=== PATIENT | male | born 1970 | race Caucasian/White ===

== ENCOUNTER → 2018-07-18 08:09 | Outpatient (CLI) | payer OTHER, SELFPAY ==
--- NOTE | 2018-07-18 | DI.MRI.S_ITS ---
PROCEDURE: MR SHOULDER RT WO CON INDICATIONS: RIGHT SHOULDER PAIN TECHNIQUE: Noncontrast oblique coronal T2 fast spin echo with fat saturation, oblique sagittal T1 spin echo and T2 fast spin echo with fat saturation, axial T1 spin echo and T2 fast spin echo with fat saturation through the shoulder. COMPARISON: None. FINDINGS: Image quality: Excellent. Rotator cuff: Tendinosis a low grade articular and bursal surface partial-thickness tear involving distal supraspinatus near its insertion the humeral head is seen. Tendinosis involving the distal infraspinatus is also seen. There is also distal subscapularis tendinosis. No full-thickness rotator cuff tendon rupture. Sagittal images demonstrate no significant muscle atrophy. Bones and bursae: No bone marrow contusions or fractures. Mild to moderate acromioclavicular joint osteoarthritis is seen. Mild to moderate glenohumeral joint osteoarthritis is also noted. The acromion demonstrates conventional anatomy, without an os acromiale. No pathologic subacromial-subdeltoid or subcoracoid bursal fluid is present. Capsule and soft tissues: In the absence of intra-articular contrast, there is suggestion of superior anterior labral tear extending from 12 to 2:00 position. There is also suggestion of inferior labral tear is 5 to 6:00 position. The long head of the biceps tendon demonstrates normal location and morphology. The rotator interval appears normal, without fibrosis. The coracohumeral ligament is normal in thickness. IMPRESSION: 1. Tendinosis and low-grade partial-thickness tear involving distal supraspinatus. Distal infraspinatus subscapularis tendinosis. No full-thickness rotator cuff tendon tear. No significant rotator cuff muscle atrophy. 2. Erdx-os-veulelts a.c. joint and glenohumeral joint osteophyte is. No fracture or dislocation. No significant joint fluid. 3. Degenerative changes throughout labrum with suggestion of superior anterior labral tear from 12 to 2:00 position an inferior labral tear at 5 to 6:00 position. Dictated by: Duncan Arzate M.D. on 07/18/2018 at 12:48 Approved by: Duncan Arzate M.D. on 07/18/2018 at 12:55
== END ==
PROVIDERS: Visit Provider Nurse Practitioner Acute Care
DX: M25.511 Pain in right shoulder (principal); S46.011A Strain of muscle(s) and tendon(s) of the rotator cuff of right shoulder, initial encounter; M19.011 Primary osteoarthritis, right shoulder
CPT/HCPCS: 73221

== ENCOUNTER 2018-07-24 20:43 | Emergency (ER) | payer OTHER, SELFPAY ==
[2018-07-24 20:51] VITALS: BP 152/103; PULSE 92; RESP 18; TEMP 36.9; O2SAT 97; BMI 27.3
--- NOTE | 2018-07-24 21:03 | ED_ITS ---
HPI - Abdominal Pain General Chief Complaint: Abdominal Pain Stated Complaint: states that his kidneys are killing him. Time Seen by Provider: 07/24/18 21:03 Source: patient Mode of arrival: ambulatory Limitations: no limitations History of Present Illness HPI narrative: 48-year-old male came in for evaluation of possible parasitic infection. Patient states that he does ?dive? a lot. 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 He states that several months ago he was ?peeing warms ?he went to see his primary doctor. He states that he had multiple tests done to include testing for STDs. He states he was diagnosed with ?pinworms ?was placed on albendazole which he took this medication until completion. Patient states that all of his symptoms seem to resolve until couple days ago where he states he started to have problems with urinating again. He states that when he diet as he urinates. He states that when he hangs his shorts out to dry there is a patch on his shorts where he states there are ?eggs ?he states that he has a physician friend who was also a diver who states that he probably has schistosomiasis. He states that he is concerned that he now has a kidney infection because his lower back is hurting. Denies any rashes. Denies any fevers. States he does have lower abdominal pain. No nausea vomiting. No specific burning when he pees. No urinary incontinence or retention or frequency. Related Data Allergies Allergy/AdvReac Type Severity Reaction Status Date / Time No Known Drug Allergies Allergy Verified 07/24/18 20:56 Review of Systems Constitutional Denies chills, Denies fatigue, Denies fever(s), Denies lethargy and Denies malaise ENT Ears, Nose, Mouth, and Throat: Denies vertigo and Denies dizziness Cardiovascular Denies chest pain, Denies syncope, Denies edema and Denies dyspnea Respiratory Denies dyspnea Gastrointestinal Gastrointestinal: Reports abdominal pain, Denies melena, Denies nausea and Denies vomiting Genitourinary Denies hematuria, Denies oliguria, Denies dysuria, Denies nocturia, Denies testicular pain, Denies urinary frequency, Denies urinary hesitancy and Denies urinary urgency Comments: ?Peeing worms ? Musculoskeletal Denies myalgias and Denies arthralgias Integumentary/Breasts Denies lesions and Denies rash Neurologic Denies confusion, Denies vertigo, Denies dizziness and Denies syncope Psychiatric Denies confusion Endocrine Denies fatigue Allergic/Immunologic Denies urticaria [facility] Medical History Healthy adult (Acute) Surgical History No pertinent past surgical history (Acute) Social History Smoking Status: Never smoker Exam Initial Vital Signs Initial Vital Signs: Vital Signs Temperature 98.4 F 07/24/18 20:51 Pulse Rate 92 H 07/24/18 20:51 Respiratory Rate 18 07/24/18 20:51 Blood Pressure 152/103 H 07/24/18 20:51 Pulse Oximetry 97 07/24/18 20:51 Const General: cooperative, healthy appearing, comfortable, well developed, well groomed and No acute distress Orientation: alert, awake and oriented x3 HENMT Head: normal to inspection and normocephalic Resp Effort & Inspection: normal respiratory effort Auscultation: clear to auscultation bilaterally Cardio Rate: regular rate Rhythm: regular rhythm Pulses: radial pulses present GI Inspection: normal to inspection and non-distended Palpation: soft, No firm, No guarding and No tender Skin Lesions: no lesions Rashes: no rashes Neuro General: alert, awake and oriented x3 Extrem General: normal to inspection and capillary refill normal Psych Appearance: grossly normal and well kempt Course Orders Ordered: ED Orders 07/24/18 21:20 CT abdomen pelvis w con Stat 07/24/18 21:26 Complete Blood Count AUTO DIFF Stat Comprehensive Metabolic Panel Stat Lipase Stat 07/24/18 21:30 Blood Culture Stat 07/24/18 21:35 Urinalysis and Microscopic Stat Urine Chlamydia Gonorrhea PCR Stat Urine Culture Stat Discontinued Medications Sodium Chloride (Normal Saline 0.9%) 1,000 mls @ 1,000 mls/hr IV BOLUS ONE Stop: 07/24/18 22:19 Last Infusion: 07/24/18 22:26 Dose: 0 mls/hr Admin: 07/24/18 21:20 Dose: 1,000 mls/hr Vital Signs - 8 hr 07/24/18 20:51 07/24/18 22:39 Temperature 98.4 F Pulse Rate 92 H 69 Respiratory Rate 18 15 Blood Pressure 152/103 H Blood Pressure [Right Arm] 115/73 Pulse Oximetry 97 96 MDM - Abdominal Pain Lab Data Attestation: I reviewed the patient's lab results. Result diagrams: 07/24/18 21:26 07/24/18 21:26 Lab Results 07/24/18 07/24/18 07/24/18 Range/Units 21:26 21:26 21:35 WBC 11.4 H (4.5-11.0) X10^3/uL RBC 5.31 (4.5-5.9) X10^6/uL Hgb 15.8 (13.5-17.5) g/dL Hct 45.9 (41-53) % MCV 86.3 (80-100) fL MCH 29.7 (26-34) PG MCHC 34.4 (30-36) % RDW 13.8 (11.6-14.8) % Plt Count 198 (150-400) X10^3/uL Neut % (Auto) 69.2 (50-75) % Lymph % (Auto) 20.9 L (25-40) % [place] % (Auto) 6.0 (3-14) % Eos % (Auto) 3.2 (2-4) % Baso % (Auto) 0.7 (0-2) % Neut # (Auto) 7900 H (6242-5105) /uL Sodium 146 H (137-145) mmol/L Potassium 3.9 (3.4-5.1) mmol/L Chloride 106 (98-107) mmol/L Carbon Dioxide 27 (22-32) mmol/L BUN 15 (9-20) mg/dL Creatinine 1.00 (0.66-1.25) mg/dL Estimated GFR > 60.0 (>60) mL/min BUN/Creatinine Ratio 15.0 (6-22) Glucose 118 H (70-100) mg/dL Calcium 9.8 (8.4-10.2) mg/dL Total Bilirubin 0.4 (0.2-1.3) mg/dL AST 22 (17-59) IU/L ALT 26 (21-72) IU/L Alkaline Phosphatase 40 (38-126) U/L Total Protein 7.4 (6.3-8.2) g/dL Albumin 4.6 (3.5-5.0) g/dL Globulin 2.8 (1.7-4.1) g/dL Albumin/Globulin Ratio 1.6 (1.0-2.8) Lipase 134 (23-300) U/L Urine Color Yellow Urine Appearance Clear Urine pH 5.5 (4.5-8.0) Ur Specific [place] 1.010 (1.000-1.035) Urine Protein Negative (Negative) Urine Glucose (UA) Negative (Normal) g/dL Urine Ketones Negative (NEGATIVE) Urine Occult Blood Negative (Negative) Urine Nitrate Negative (Negative) Urine Bilirubin Negative (NEGATIVE) Urine Urobilinogen 0.2 (0.2) E.U./dL Ur Leukocyte Esterase Trace H (NEGATIVE) Urine RBC None seen (0-5/HPF) Urine WBC 0-1/hpf (0-5/HPF) Urine Bacteria None seen (None) Ur Culture Indicated? Not Reportable Micro UA Comment Not Reportable Imaging Data CT scan - abdomen: Radiologist's impression: Mildly hyperdense left renal lesion, possibly a complex cyst. Follow-up ultrasound correlation is suggested. MDM Narrative Medical decision making narrative: Patient's labs unremarkable. His urinalysis is unremarkable. I did obtain a urine culture despite the normal urinalysis to definitively prove no infection. GC chlamydia urine also ordered. Patient was informed that this was obtained. CT scan of his abdomen shows no acute pathology. I did discuss the renal cyst with him and informed him he needed to follow up with his primary doctor. We did discuss the Schistosomiasis. I did offer to discharge him with a prescription for Praziquantel however I informed him that I had no definitive diagnosis. After our discussion the patient opted to hold on any prescriptions for now. He states that he is not concerned about any sexually transmitted infections. He states that he had a ?full test ?for this about a month ago by his primary doctor. He states he has not had intercourse in several months. Patient is nontoxic appearing. He was instructed that he needed to contact his primary care doctor tomorrow for follow -up. He was given return precautions. He expressed understanding and agreement with plan. Discharge Plan Departure Patient Disposition: Home Clinical Impression: Dysuria, Abdominal pain Instructions: DI for Abdominal Pain-Adult, DI for Dysuria -- Adult Activity Restrictions/Additional Instructions: You do have a urine culture pending. Out of the emergency department we only call for a positive culture results. Recommend that you contact your primary care doctor tomorrow for a follow-up visit. Return to the emergency department for any new or worsening symptoms
[2018-07-24] MEDS: SODIUM CHLORIDE 0.9% 1,000 ML 1000 ML IV (21:20)
--- NOTE | 2018-07-24 21:20 | DI.CT.S_ITS ---
PROCEDURE: CT ABDOMEN PELVIS W CON INDICATIONS: lower abdominal pain TECHNIQUE: After the administration of intravenous contrast, 5 mm thick sections acquired from the diaphragm to the symphysis. 5 mm coronal and sagittal reformats were acquired. For radiation dose reduction, the following was used: automated exposure control, adjustment of mA and/or kV according to patient size. COMPARISON: None. FINDINGS: Image quality: Excellent. ABDOMEN: Lung bases: Lung bases are clear. 1.2 cm thin-walled pulmonary cysts noted in the posterior-medial right lower lobe. Heart size is normal. Solid organs: Liver is normal in size and enhancement. Gallbladder is within normal limits. Biliary system is non dilated. Pancreas enhances normally. Spleen is normal in size and enhancement. Small punctate calcification in the spleen compatible sequela prior granulomatous disease. No adrenal nodules. Kidneys demonstrate normal size and enhancement, without hydronephrosis. 1.8 cm diameter hypoattenuating lesion with density measurements of 42 Hounsfield units in the midpole of left kidney. Peritoneum and bowel: Bowel loops demonstrate normal wall thickness and caliber. A few scattered diverticuli noted in the colon without evidence of diverticulitis. No free fluid or air. The appendix is normal. Nodes and vessels: No retroperitoneal or mesenteric adenopathy by size criteria. Aorta and inferior vena cava are normal in size. Scattered atherosclerotic calcifications involving the abdominal and pelvic vasculature. Miscellaneous: Small fat-containing umbilical hernia. PELVIS: Genitourinary: Bladder wall thickness is normal. Miscellaneous: No inguinal adenopathy. Small fat containing left inguinal hernia. Bones: No suspicious bony lesions. No vertebral body compression fractures. Spine degenerative disc disease and facet arthropathy. IMPRESSION: 1. No acute disease process. 2. The appendix is normal. 3. No free fluid or free air. 4. No dilated loops of bowel. 5. Colonic diverticulosis without evidence of diverticulitis. 6. 1.8 cm hypoattenuating lesion left kidney with density measurements of 42 Hounsfield units possibly representing a hyperdense cyst. Recommend renal ultrasound for characterization. 7. Small umbilical ventral hernia and left inguinal hernia. Dictated by: Teresa Aguilar MD, PhD on 07/25/2018 at 7:30 Approved by: Teresa Aguilar MD, PhD on 07/25/2018 at 7:36
[2018-07-24 21:41] LABS: Bacteria Urine None Seen; RBC Urine None Seen (0-5/HPF)
[2018-07-24 21:42] LABS: Basophils Percent Auto 0.7 % (0-2); Eosinophils Percent Auto 3.2 % (2-4); Hematocrit 45.9 % (41-53); Hemoglobin 15.8 g/dL (13.5-17.5); Lymphocytes Percent Auto 20.9 % (25-40); Mean Corpuscular HGB Conc 34.4 % (30-36); Mean Corpuscular Hemoglobin 29.7 PG (26-34); Mean Corpuscular Volume 86.3 fL (80-100); Neutrophils Percent Auto 69.2 % (50-75); Platelet Count 198 X10^3/uL (150-400); Red Blood Cell Count 5.31 X10^6/uL (4.5-5.9); Red Cell Distribution Width 13.8 % (11.6-14.8); White Blood Cell Count 11.4 X10^3/uL (4.5-11.0)
[2018-07-24 21:43] LABS: Appearance Urine UA CLEAR; Bilirubin Urine UA NEGATIVE (NEGATIVE); Color Urine UA YELLOW; Glucose Urine UA NEGATIVE (Normal); Ketones Urine UA NEGATIVE (NEGATIVE); Leukocyte Esterase Urine UA TRACE (NEGATIVE); Nitrite Urine UA Negative (Negative); Occult Blood Urine UA NEGATIVE (Negative); Protein Urine UA NEGATIVE (Negative); Urobilinogen Urine UA 0.2 E.U./dL (0.2); pH Urine UA 5.5 (4.5-8.0)
[2018-07-24 21:43] LABS: Add Manual Diff / Slide Review NO; Neutrophils Absolute Auto 7900 /uL (3000-5900)
[2018-07-24 21:47] LABS: Alanine Aminotransferase 26 IU/L (21-72); Albumin 4.6 g/dL (3.5-5.0); Albumin Globulin Ratio 1.6 (1.0-2.8); Alkaline Phosphatase 40 U/L (38-126); Aspartate Aminotransferase 22 IU/L (17-59); Bilirubin Total 0.4 mg/dL (0.2-1.3); Blood Urea Nitrogen 15 mg/dL (9-20); Calcium 9.8 mg/dL (8.4-10.2); Carbon Dioxide 27 mmol/L (22-32); Chloride 106 mmol/L (98-107); Estimated Glomerular Filt Rate > 60.0 mL/min (>60); Globulin 2.8 g/dL (1.7-4.1); Glucose 118 mg/dL (70-100); HEMOLYSIS < 15 (0-50); Lipase 134 U/L (23-300); Potassium 3.9 mmol/L (3.4-5.1); Sodium 146 mmol/L (137-145); Total Protein 7.4 g/dL (6.3-8.2)
[2018-07-24 21:52] LABS: WBC Urine 0-1/HPF (0-5/HPF)
[2018-07-24 22:39] VITALS: BP 115/73; PULSE 69; RESP 15; O2SAT 96
[2018-07-24 23:30] LABS: Urine N gonorrhoeae NOT DETECTED
[2018-07-24 23:40] LABS: Urine Chlamydia NOT DETECTED
== END 2018-07-24 23:38 | disposition home or self-care (01) ==
PROVIDERS: Emergency Provider Emergency Medicine
DX: R30.0 Dysuria (principal); R10.9 Unspecified abdominal pain
CPT/HCPCS: 36415; 74177; 80053; 81001; 83690; 85025; 87040; 87086; 87491; 87591; 96360; 99283; 99285; Q9967

== ENCOUNTER 2018-07-27 12:51 | Emergency (ER) | payer OTHER, SELFPAY ==
[2018-07-27 13:01] VITALS: BP 137/96; PULSE 104; RESP 18; TEMP 37.7; O2SAT 96
--- NOTE | 2018-07-27 15:38 | ED.MALEGU ---
HPI - Male Genitourinary <CLEM Rothman-BC - Last Filed: 07/27/18 22:31> General Chief complaint: Urogenital-Male Stated complaint: states he has a cyst on his kidney, hurts Time Seen by Provider: 07/27/18 15:39 Source: patient Mode of arrival: ambulatory Limitations: no limitations History of Present Illness HPI Narrative: Patient presents with chief complaint of renal cyst pain. He was evaluated in this emergency department on 07/24 and diagnosed with a renal cyst. He appears frustrated [facility]. He is concerned that he is going to have cyst explode and .? Patient does complain of flank pain, which she states is from the cyst. He also makes remarks that he is concerned that he has a bacteria or parasite that went through his swim trunks of his penis and into his bladder. He is concerned that the parasite has gone up into his kidney. The patient denies any fevers, nausea, vomiting, diarrhea. He denies any urinary symptoms including dysuria urgency or frequency. He states he has recent STI testing and declines that today. Chart review illustrate that he had gonorrhea chlamydia performed on the which came back negative. Patient presents requesting admission due to renal cyst. Related Data Previous Rx's Medication Instructions Recorded naproxen 500 mg PO BID #30 tab 07/27/18 Allergies Allergy/AdvReac Type Severity Reaction Status Date / Time No Known Drug Allergies Allergy Verified 07/24/18 20:56 Review of Systems <CLEM Rothman-KARINA - Last Filed: 07/27/18 22:31> Review of Systems GENERAL: Denies chills, fatigue, malaise, fever, sweats. HEENT: Denies sinus pain, ear pain, sore throat, difficulty swallowing, dizziness. RESPIRATORY: Denies dyspnea, cough, wheezing, hemoptysis, sputum. CARDIOVASCULAR: Denies chest pain, palpitations, orthopnea, edema, GASTROINTESTINAL: See HPI : Denies dysuria, frequency, incontinence, hematuria, urinary retention. MUSCULOSKELETAL: denies weakness, joint pain, or bony pain SKIN: Denies rash, skin lesions, or other NEUROLOGIC: Denies weakness, headache, numbness, change in speech, confusion, seizures, incoordination. PSYCHIATRIC: No concerning psychosocial issues. 12 point review of systems is negative except for those stated above Exam <LEEANNE Rothman - Last Filed: 07/27/18 22:31> Narrative Exam Narrative: GENERAL: This is a well-nourished, well-developed patient, in mild distress. HEAD: Atraumatic. Normocephalic. No temporal or scalp tenderness. EYES: Pupils equal round and reactive. Extraocular motions intact. No scleral icterus. No injection or drainage. ENT: Nose without bleeding, purulent drainage or septal hematoma. Throat without erythema, tonsillar hypertrophy or exudate. Uvula midline. Airway patent. NECK: Trachea midline. No JVD or lymphadenopathy. Supple, nontender, no meningeal signs. CARDIOVASCULAR: Regular rate and rhythm without murmurs, gallops, or rubs. RESPIRATORY: Clear to auscultation. Breath sounds equal bilaterally. No wheezes, rales, or rhonchi. GASTROINTESTINAL: Abdomen diffusely tender, nondistended. No hepato-splenomegaly, or palpable masses. No guarding. No pulsatile mass palpable. No pain at McBurney's point. Negative Lynn sign. EXTREMITIES: No clubbing, cyanosis, or edema. No joint tenderness, effusion, or edema noted. BACK: Nontender without deformity or crepitance. Right-sided flank tenderness. NEURO: AOx3. Pressured speech SKIN: No rash or erythema. No ecchymosis erythema or rash noted lower back. Initial Vital Signs Initial Vital Signs: Vital Signs Temperature 99.8 F H 07/27/18 13:01 Pulse Rate 104 H 07/27/18 13:01 Respiratory Rate 18 07/27/18 13:01 Blood Pressure 137/96 H 07/27/18 13:01 Pulse Oximetry 96 07/27/18 13:01 <Albin Fiore DO - Last Filed: 07/27/18 23:48> Initial Vital Signs Initial Vital Signs: Vital Signs Temperature 99.8 F H 07/27/18 13:01 Pulse Rate 104 H 07/27/18 13:01 Respiratory Rate 18 07/27/18 13:01 Blood Pressure 137/96 H 07/27/18 13:01 Pulse Oximetry 96 07/27/18 13:01 Course <LEEANNE Rothman - Last Filed: 07/27/18 22:31> Orders Ordered: ED Orders 07/27/18 16:20 Complete Blood Count MAN DIFF Stat Comprehensive Metabolic Panel Stat 07/27/18 17:36 US renal complete Stat Discontinued Medications Ketorolac Tromethamine (Toradol) 60 mg IM NOW ONE Stop: 07/27/18 17:43 Last Admin: 07/27/18 17:52 Dose: 60 mg The patient presented to the emergency department requesting admission to have his for renal cyst removed. He states that he was told that he could come to the hospital and get any testing wanted because he is on disability. I discussed with him that I cannot automatically admit him due to the renal cyst that was found a few days ago. The patient appeared to become upset, using pressured speech and swearing at times. I did agree to get a renal ultrasound, but discussed that that would not guarantee an admission in the hospital. I discussed at length the results of the renal ultrasound with him, noted that the mass found was solid. The patient did request an anti parasite medication. However given that he had a negative urine culture recently and a negative urinalysis today, I declined to prescribe that medication form encourage follow-up this primary care provider. When he discussed that he has a hard time getting into his primary care provider offered to refer him to a different group. I did give him contact information for the nephrology group in case he chooses to pursue that. I discussed at length with patient that presenting to the emergency department does not necessarily mean that all testing in all imaging is available. The patient appear distressed at this discussion. I discussed at length that the patient is to follow up his primary care provider for further imaging and/or testing or monitoring of his renal cyst Vital Signs - 8 hr 07/27/18 16:40 07/27/18 18:00 Pulse Rate 65 63 Blood Pressure [Right Arm] 136/87 148/83 H Pulse Oximetry 99 100 <Albin Fiore, DO - Last Filed: 07/27/18 23:48> Orders Ordered: ED Orders 07/27/18 16:20 Complete Blood Count MAN DIFF Stat Comprehensive Metabolic Panel Stat 07/27/18 17:36 US renal complete Stat Discontinued Medications Ketorolac Tromethamine (Toradol) 60 mg IM NOW ONE Stop: 07/27/18 17:43 Last Admin: 07/27/18 17:52 Dose: 60 mg Vital Signs - 8 hr 07/27/18 16:40 07/27/18 18:00 Pulse Rate 65 63 Blood Pressure [Right Arm] 136/87 148/83 H Pulse Oximetry 99 100 MDM - Male Genitourinary <VIJAY RothmanP- - Last Filed: 07/27/18 22:31> Lab Data Attestation: I reviewed the patient's lab results. Result diagrams: 07/27/18 16:20 07/27/18 16:20 Lab Results 07/27/18 07/27/18 Range/Units 16:20 16:20 WBC 12.8 H (4.5-11.0) X10^3/uL RBC 5.28 (4.5-5.9) X10^6/uL Hgb 15.5 (13.5-17.5) g/dL Hct 45.9 (41-53) % MCV 87.0 (80-100) fL MCH 29.4 (26-34) PG MCHC 33.8 (30-36) % RDW 14.0 (11.6-14.8) % Plt Count 203 (150-400) X10^3/uL Total Counted 100 Seg Neutrophils % 80.0 H (38-70) % Band Neutrophils % 2.0 L (3-7) % Lymphocytes % (Manual) 12.0 L (25-45) % Monocytes % (Manual) 4.0 (2-11) % Eosinophils % (Manual) 1.0 L (2-4) % Basophils % (Manual) 1.0 (0-1) % Neutrophils # (Manual) 16310 H (3125-1185) /uL RBC Morphology Normal morphology Sodium 143 (137-145) mmol/L Potassium 4.1 (3.4-5.1) mmol/L Chloride 106 (98-107) mmol/L Carbon Dioxide 28 (22-32) mmol/L BUN 17 (9-20) mg/dL Creatinine 1.00 (0.66-1.25) mg/dL Estimated GFR > 60.0 (>60) mL/min BUN/Creatinine Ratio 17.0 (6-22) Glucose 93 (70-100) mg/dL Calcium 9.9 (8.4-10.2) mg/dL Total Bilirubin 0.7 (0.2-1.3) mg/dL AST 25 (17-59) IU/L ALT 29 (21-72) IU/L Alkaline Phosphatase 39 (38-126) U/L Total Protein 7.5 (6.3-8.2) g/dL Albumin 4.5 (3.5-5.0) g/dL Globulin 3.0 (1.7-4.1) g/dL Albumin/Globulin Ratio 1.5 (1.0-2.8) Urine Dip Bedside Urine Glucose Negative Bedside Urine Bilirubin - Negative Bedside Urine Ketone +/- 5 Urine Specific Griffin 1.030 Bedside Urine Occult Blood - Negative Bedside Urine pH 5.5 Bedside Urine Protein - Negative Bedside Urine Urobilinogen - Negative Bedside Urine Nitrite - Negative Bedside Urine Leukocytes - Negative Esterase Imaging Data renal US: Radiologist's impression: [address] [address] Ultrasound Report Signed Patient: Eliot Benoit EMR#: [id number] : 1970Acct:[id number] Age/Sex: 48 / MDate of Service: 07/27/18 Loc: ED Accession Number: [id number] Procedure: US renal complete Ordering Provider: Lesly Altman PROCEDURE: US RENAL COMPLETE INDICATIONS: LEFT KIDNEY MASS ON CT TECHNIQUE: Real-time scanning was performed of the kidneys and bladder, with image documentation. COMPARISON: [facility], CT, CT ABDOMEN PELVIS W CON, 07/24/2018, 21:42. FINDINGS: Kidneys: Kidneys are normal in size. Right kidney measures 10.9 cm long; left kidney measures 11.3 cm long. Right renal cortical thickness is 1.7 cm; left renal cortical thickness is 1.9 cm. Renal cortical echotexture is normal. No hydronephrosis or nephrolithiasis. 1.7 x 1.7 x 1.7 cm echogenic round and solid-appearing lesion is noted in mid pole of left kidney which was also seen on recent CT of abdomen and pelvis. No internal vascularity is noted. No other discrete renal lesion is seen. Bladder: Pre-void bladder volume is 173 mL. No significant post void residual is seen. Pre-void images demonstrate no intraluminal masses or stones. On pre-void images, bilateral ureteral jets are not noted with color Doppler interrogation. (Of note, ureteral jets may not be detectable in up to 25% of cases due to insufficient differences in specific gravity between ureteral and bladder urine). Miscellaneous: No free pelvic fluid. IMPRESSION: 1. 1.7 cm round echogenic and solid-appearing lesion involving the pole of left kidney. No internal vascularity is seen. Finding could represent benign process such as angiomyolipoma. Malignant renal mass cannot be excluded. Consider MRI of abdomen without and with contrast for further evaluation if indicated. 2. No other renal lesion is seen. No hydronephrosis. Dictated by: Duncan Arzate M.D. on 07/27/2018 at 18:39 Approved by: Duncan Arzate M.D. on 07/27/2018 at 18:43 [facility] Narrative Medical decision making narrative: The patient presents with chief complaint of flank pain. He has noted renal cyst and was requesting further imaging and admission for its removal. I did do an ultrasound emergency department. I encouraged him to follow up with his primary care provider. He had a negative urinalysis and stable lab work. He is hemodynamically stable upon discharge in the emergency department has been so throughout his stay here. I did give him a prescription of naproxen for his pain. I discussed at length return precaution the emergency department including concerned part is Dr. hernandez. <Albin Fiore DO - Last Filed: 07/27/18 23:48> Lab Data Lab Results 07/27/18 07/27/18 Range/Units 16:20 16:20 WBC 12.8 H (4.5-11.0) X10^3/uL RBC 5.28 (4.5-5.9) X10^6/uL Hgb 15.5 (13.5-17.5) g/dL Hct 45.9 (41-53) % MCV 87.0 (80-100) fL MCH 29.4 (26-34) PG MCHC 33.8 (30-36) % RDW 14.0 (11.6-14.8) % Plt Count 203 (150-400) X10^3/uL Total Counted 100 Seg Neutrophils % 80.0 H (38-70) % Band Neutrophils % 2.0 L (3-7) % Lymphocytes % (Manual) 12.0 L (25-45) % Monocytes % (Manual) 4.0 (2-11) % Eosinophils % (Manual) 1.0 L (2-4) % Basophils % (Manual) 1.0 (0-1) % Neutrophils # (Manual) 31435 H (1387-3334) /uL RBC Morphology Normal morphology Sodium 143 (137-145) mmol/L Potassium 4.1 (3.4-5.1) mmol/L Chloride 106 (98-107) mmol/L Carbon Dioxide 28 (22-32) mmol/L BUN 17 (9-20) mg/dL Creatinine 1.00 (0.66-1.25) mg/dL Estimated GFR > 60.0 (>60) mL/min BUN/Creatinine Ratio 17.0 (6-22) Glucose 93 (70-100) mg/dL Calcium 9.9 (8.4-10.2) mg/dL Total Bilirubin 0.7 (0.2-1.3) mg/dL AST 25 (17-59) IU/L ALT 29 (21-72) IU/L Alkaline Phosphatase 39 (38-126) U/L Total Protein 7.5 (6.3-8.2) g/dL Albumin 4.5 (3.5-5.0) g/dL Globulin 3.0 (1.7-4.1) g/dL Albumin/Globulin Ratio 1.5 (1.0-2.8) Urine Dip Bedside Urine Glucose Negative Bedside Urine Bilirubin - Negative Bedside Urine Ketone +/- 5 Urine Specific Griffin 1.030 Bedside Urine Occult Blood - Negative Bedside Urine pH 5.5 Bedside Urine Protein - Negative Bedside Urine Urobilinogen - Negative Bedside Urine Nitrite - Negative Bedside Urine Leukocytes - Negative Esterase Discharge Plan Departure Patient Disposition: Home Clinical Impression: Renal cyst Discharge Date/Time: 07/27/18 19:10 Interventions: ED Discharge Assessment Last Done: 07/27/18 19:26 Instructions: DI for Flank Pain Activity Restrictions/Additional Instructions: Your urine came back normal today. Your CBC and CMP came back normal today. Thus your kidney function is within normal limits. Please follow-up with primary care provider regarding the mass on in her kidney. This is found to be a solid cyst like structure with no blood flow. I have given you a prescription for naproxen for pain he could take this twice a day. Please start tomorrow given the Toradol that you had today. Please follow-up with the primary care provider. I have given you a contact information for [employer] so you can contact them if he would like. Prescriptions: New naproxen 500 mg tablet 500 mg PO BID Qty: 30 RF: 0 Referrals: [facility] [Outside] [facility] [Outside] <Albin Fiore DO - Last Filed: 07/27/18 23:48> [facility] Attending Amair[place] Attestation: I was available for consultation during this patient's emergency department encounter
[2018-07-27 16:27] LABS: Hematocrit 45.9 % (41-53); Hemoglobin 15.5 g/dL (13.5-17.5); Mean Corpuscular HGB Conc 33.8 % (30-36); Mean Corpuscular Hemoglobin 29.4 PG (26-34); Platelet Count 203 X10^3/uL (150-400); Red Blood Cell Count 5.28 X10^6/uL (4.5-5.9); White Blood Cell Count 12.8 X10^3/uL (4.5-11.0)
[2018-07-27 16:29] LABS: Neutrophils Absolute Manual 10496 /uL (3000-5900); Total Cells Counted 100
[2018-07-27 16:30] LABS: RBC Morphology Normal Morphology
[2018-07-27 16:37] LABS: Alanine Aminotransferase 29 IU/L (21-72); Albumin 4.5 g/dL (3.5-5.0); Albumin Globulin Ratio 1.5 (1.0-2.8); Alkaline Phosphatase 39 U/L (38-126); Aspartate Aminotransferase 25 IU/L (17-59); Bilirubin Total 0.7 mg/dL (0.2-1.3); Blood Urea Nitrogen 17 mg/dL (9-20); Calcium 9.9 mg/dL (8.4-10.2); Carbon Dioxide 28 mmol/L (22-32); Chloride 106 mmol/L (98-107); Estimated Glomerular Filt Rate > 60.0 mL/min (>60); Glucose 93 mg/dL (70-100); HEMOLYSIS 15 (0-50); Potassium 4.1 mmol/L (3.4-5.1); Sodium 143 mmol/L (137-145); Total Protein 7.5 g/dL (6.3-8.2)
[2018-07-27 16:40] VITALS: BP 136/87; PULSE 65; O2SAT 99
--- NOTE | 2018-07-27 17:36 | DI.US.S_ITS ---
PROCEDURE: US RENAL COMPLETE INDICATIONS: LEFT KIDNEY MASS ON CT TECHNIQUE: Real-time scanning was performed of the kidneys and bladder, with image documentation. COMPARISON: [facility], CT, CT ABDOMEN PELVIS W CON, 07/24/2018, 21:42. FINDINGS: Kidneys: Kidneys are normal in size. Right kidney measures 10.9 cm long; left kidney measures 11.3 cm long. Right renal cortical thickness is 1.7 cm; left renal cortical thickness is 1.9 cm. Renal cortical echotexture is normal. No hydronephrosis or nephrolithiasis. 1.7 x 1.7 x 1.7 cm echogenic round and solid-appearing lesion is noted in mid pole of left kidney which was also seen on recent CT of abdomen and pelvis. No internal vascularity is noted. No other discrete renal lesion is seen. Bladder: Pre-void bladder volume is 173 mL. No significant post void residual is seen. Pre-void images demonstrate no intraluminal masses or stones. On pre-void images, bilateral ureteral jets are not noted with color Doppler interrogation. (Of note, ureteral jets may not be detectable in up to 25% of cases due to insufficient differences in specific gravity between ureteral and bladder urine). Miscellaneous: No free pelvic fluid. IMPRESSION: 1. 1.7 cm round echogenic and solid-appearing lesion involving the pole of left kidney. No internal vascularity is seen. Finding could represent benign process such as angiomyolipoma. Malignant renal mass cannot be excluded. Consider MRI of abdomen without and with contrast for further evaluation if indicated. 2. No other renal lesion is seen. No hydronephrosis. Dictated by: Duncan Arzate M.D. on 07/27/2018 at 18:39 Approved by: Duncan Arzate M.D. on 07/27/2018 at 18:43
[2018-07-27] MEDS: KETOROLAC 60 MG/2 ML VIAL IM (17:52)
[2018-07-27 18:00] VITALS: BP 148/83; PULSE 63; O2SAT 100
--- NOTE | 2018-07-27 18:59 | ED_ITS ---
HPI - Male Genitourinary <CLEM Rothman-BC - Last Filed: 07/27/18 22:31> General Chief complaint: Urogenital-Male Stated complaint: states he has a cyst on his kidney, hurts Time Seen by Provider: 07/27/18 15:39 Source: patient Mode of arrival: ambulatory Limitations: no limitations History of Present Illness HPI Narrative: Patient presents with chief complaint of renal cyst pain. He was evaluated in this emergency department on 07/24 and diagnosed with a renal cyst. He appears frustrated [facility]. He is concerned that he is going to have cyst explode and .? Patient does complain of flank pain, which she states is from the cyst. He also makes remarks that he is concerned that he has a bacteria or parasite that went through his swim trunks of his penis and into his bladder. He is concerned that the parasite has gone up into his kidney. The patient denies any fevers, nausea, vomiting, diarrhea. He denies any urinary symptoms including dysuria urgency or frequency. He states he has recent STI testing and declines that today. Chart review illustrate that he had gonorrhea chlamydia performed on the which came back negative. Patient presents requesting admission due to renal cyst. Related Data Previous Rx's Medication Instructions Recorded naproxen 500 mg PO BID #30 tab 07/27/18 Allergies Allergy/AdvReac Type Severity Reaction Status Date / Time No Known Drug Allergies Allergy Verified 07/24/18 20:56 Review of Systems <CLEM Rothman-KARINA - Last Filed: 07/27/18 22:31> Review of Systems GENERAL: Denies chills, fatigue, malaise, fever, sweats. HEENT: Denies sinus pain, ear pain, sore throat, difficulty swallowing, dizziness. RESPIRATORY: Denies dyspnea, cough, wheezing, hemoptysis, sputum. CARDIOVASCULAR: Denies chest pain, palpitations, orthopnea, edema, GASTROINTESTINAL: See HPI : Denies dysuria, frequency, incontinence, hematuria, urinary retention. MUSCULOSKELETAL: denies weakness, joint pain, or bony pain SKIN: Denies rash, skin lesions, or other NEUROLOGIC: Denies weakness, headache, numbness, change in speech, confusion, seizures, incoordination. PSYCHIATRIC: No concerning psychosocial issues. 12 point review of systems is negative except for those stated above Exam <LEEANNE Rothman - Last Filed: 07/27/18 22:31> Narrative Exam Narrative: GENERAL: This is a well-nourished, well-developed patient, in mild distress. HEAD: Atraumatic. Normocephalic. No temporal or scalp tenderness. EYES: Pupils equal round and reactive. Extraocular motions intact. No scleral icterus. No injection or drainage. ENT: Nose without bleeding, purulent drainage or septal hematoma. Throat without erythema, tonsillar hypertrophy or exudate. Uvula midline. Airway patent. NECK: Trachea midline. No JVD or lymphadenopathy. Supple, nontender, no meningeal signs. CARDIOVASCULAR: Regular rate and rhythm without murmurs, gallops, or rubs. RESPIRATORY: Clear to auscultation. Breath sounds equal bilaterally. No wheezes , rales, or rhonchi. GASTROINTESTINAL: Abdomen diffusely tender, nondistended. No hepato-splenomegaly , or palpable masses. No guarding. No pulsatile mass palpable. No pain at McBurney's point. Negative Lynn sign. EXTREMITIES: No clubbing, cyanosis, or edema. No joint tenderness, effusion, or edema noted. BACK: Nontender without deformity or crepitance. Right-sided flank tenderness. NEURO: AOx3. Pressured speech SKIN: No rash or erythema. No ecchymosis erythema or rash noted lower back. Initial Vital Signs Initial Vital Signs: Vital Signs Temperature 99.8 F H 07/27/18 13:01 Pulse Rate 104 H 07/27/18 13:01 Respiratory Rate 18 07/27/18 13:01 Blood Pressure 137/96 H 07/27/18 13:01 Pulse Oximetry 96 07/27/18 13:01 <Albin Fiore DO - Last Filed: 07/27/18 23:48> Initial Vital Signs Initial Vital Signs: Vital Signs Temperature 99.8 F H 07/27/18 13:01 Pulse Rate 104 H 07/27/18 13:01 Respiratory Rate 18 07/27/18 13:01 Blood Pressure 137/96 H 07/27/18 13:01 Pulse Oximetry 96 07/27/18 13:01 Course <LEEANNE Rothman - Last Filed: 07/27/18 22:31> Orders Ordered: ED Orders 07/27/18 16:20 Complete Blood Count MAN DIFF Stat Comprehensive Metabolic Panel Stat 07/27/18 17:36 US renal complete Stat Discontinued Medications Ketorolac Tromethamine (Toradol) 60 mg IM NOW ONE Stop: 07/27/18 17:43 Last Admin: 07/27/18 17:52 Dose: 60 mg The patient presented to the emergency department requesting admission to have his for renal cyst removed. He states that he was told that he could come to the hospital and get any testing wanted because he is on disability. I discussed with him that I cannot automatically admit him due to the renal cyst that was found a few days ago. The patient appeared to become upset, using pressured speech and swearing at times. I did agree to get a renal ultrasound, but discussed that that would not guarantee an admission in the hospital. I discussed at length the results of the renal ultrasound with him, noted that the mass found was solid. The patient did request an anti parasite medication. However given that he had a negative urine culture recently and a negative urinalysis today, I declined to prescribe that medication form encourage follow-up this primary care provider. When he discussed that he has a hard time getting into his primary care provider offered to refer him to a different group. I did give him contact information for the nephrology group in case he chooses to pursue that. I discussed at length with patient that presenting to the emergency department does not necessarily mean that all testing in all imaging is available. The patient appear distressed at this discussion. I discussed at length that the patient is to follow up his primary care provider for further imaging and/or testing or monitoring of his renal cyst Vital Signs - 8 hr 07/27/18 16:40 07/27/18 18:00 Pulse Rate 65 63 Blood Pressure [Right Arm] 136/87 148/83 H Pulse Oximetry 99 100 <Albin Fiore, DO - Last Filed: 07/27/18 23:48> Orders Ordered: ED Orders 07/27/18 16:20 Complete Blood Count MAN DIFF Stat Comprehensive Metabolic Panel Stat 07/27/18 17:36 US renal complete Stat Discontinued Medications Ketorolac Tromethamine (Toradol) 60 mg IM NOW ONE Stop: 07/27/18 17:43 Last Admin: 07/27/18 17:52 Dose: 60 mg Vital Signs - 8 hr 07/27/18 16:40 07/27/18 18:00 Pulse Rate 65 63 Blood Pressure [Right Arm] 136/87 148/83 H Pulse Oximetry 99 100 MDM - Male Genitourinary <VIJAY RothmanP- - Last Filed: 07/27/18 22:31> Lab Data Attestation: I reviewed the patient's lab results. Result diagrams: 07/27/18 16:20 07/27/18 16:20 Lab Results 07/27/18 07/27/18 Range/Units 16:20 16:20 WBC 12.8 H (4.5-11.0) X10^3/uL RBC 5.28 (4.5-5.9) X10^6/uL Hgb 15.5 (13.5-17.5) g/dL Hct 45.9 (41-53) % MCV 87.0 (80-100) fL MCH 29.4 (26-34) PG MCHC 33.8 (30-36) % RDW 14.0 (11.6-14.8) % Plt Count 203 (150-400) X10^3/uL Total Counted 100 Seg Neutrophils % 80.0 H (38-70) % Band Neutrophils % 2.0 L (3-7) % Lymphocytes % (Manual) 12.0 L (25-45) % Monocytes % (Manual) 4.0 (2-11) % Eosinophils % (Manual) 1.0 L (2-4) % Basophils % (Manual) 1.0 (0-1) % Neutrophils # (Manual) 92900 H (6531-4077) /uL RBC Morphology Normal morphology Sodium 143 (137-145) mmol/L Potassium 4.1 (3.4-5.1) mmol/L Chloride 106 (98-107) mmol/L Carbon Dioxide 28 (22-32) mmol/L BUN 17 (9-20) mg/dL Creatinine 1.00 (0.66-1.25) mg/dL Estimated GFR > 60.0 (>60) mL/min BUN/Creatinine Ratio 17.0 (6-22) Glucose 93 (70-100) mg/dL Calcium 9.9 (8.4-10.2) mg/dL Total Bilirubin 0.7 (0.2-1.3) mg/dL AST 25 (17-59) IU/L ALT 29 (21-72) IU/L Alkaline Phosphatase 39 (38-126) U/L Total Protein 7.5 (6.3-8.2) g/dL Albumin 4.5 (3.5-5.0) g/dL Globulin 3.0 (1.7-4.1) g/dL Albumin/Globulin Ratio 1.5 (1.0-2.8) Urine Dip Bedside Urine Glucose Negative Bedside Urine Bilirubin - Negative Bedside Urine Ketone +/- 5 Urine Specific [place] 1.030 Bedside Urine Occult Blood - Negative Bedside Urine pH 5.5 Bedside Urine Protein - Negative Bedside Urine Urobilinogen - Negative Bedside Urine Nitrite - Negative Bedside Urine Leukocytes - Negative Esterase Imaging Data renal US: Radiologist's impression: [address] [address] Ultrasound Report Signed Patient: Eliot Benoit EMR#: [id number] : 1970Acct:[id number] Age/Sex: 48 / MDate of Service: 07/27/18 Loc: ED Accession Number: [id number] Procedure: US renal complete Ordering Provider: Lesly Altman PROCEDURE: US RENAL COMPLETE INDICATIONS: LEFT KIDNEY MASS ON CT TECHNIQUE: Real-time scanning was performed of the kidneys and bladder, with image documentation. COMPARISON: [facility], CT, CT ABDOMEN PELVIS W CON, 07/24/2018, 21:42. FINDINGS: Kidneys: Kidneys are normal in size. Right kidney measures 10.9 cm long; left kidney measures 11.3 cm long. Right renal cortical thickness is 1.7 cm; left renal cortical thickness is 1.9 cm. Renal cortical echotexture is normal. No hydronephrosis or nephrolithiasis. 1.7 x 1.7 x 1.7 cm echogenic round and solid-appearing lesion is noted in mid pole of left kidney which was also seen on recent CT of abdomen and pelvis. No internal vascularity is noted. No other discrete renal lesion is seen. Bladder: Pre-void bladder volume is 173 mL. No significant post void residual is seen. Pre-void images demonstrate no intraluminal masses or stones. On pre-void images, bilateral ureteral jets are not noted with color Doppler interrogation. (Of note, ureteral jets may not be detectable in up to 25% of cases due to insufficient differences in specific gravity between ureteral and bladder urine). Miscellaneous: No free pelvic fluid. IMPRESSION: 1. 1.7 cm round echogenic and solid-appearing lesion involving the pole of left kidney. No internal vascularity is seen. Finding could represent benign process such as angiomyolipoma. Malignant renal mass cannot be excluded. Consider MRI of abdomen without and with contrast for further evaluation if indicated. 2. No other renal lesion is seen. No hydronephrosis. Dictated by: Duncan Arzate M.D. on 07/27/2018 at 18:39 Approved by: Duncan Arzate M.D. on 07/27/2018 at 18:[address] [facility] Narrative Medical decision making narrative: The patient presents with chief complaint of flank pain. He has noted renal cyst and was requesting further imaging and admission for its removal. I did do an ultrasound emergency department. I encouraged him to follow up with his primary care provider. He had a negative urinalysis and stable lab work. He is hemodynamically stable upon discharge in the emergency department has been so throughout his stay here. I did give him a prescription of naproxen for his pain. I discussed at length return precaution the emergency department including concerned part is Dr. hernandez. <Albin Fiore DO - Last Filed: 07/27/18 23:48> Lab Data Lab Results 07/27/18 07/27/18 Range/Units 16:20 16:20 WBC 12.8 H (4.5-11.0) X10^3/uL RBC 5.28 (4.5-5.9) X10^6/uL Hgb 15.5 (13.5-17.5) g/dL Hct 45.9 (41-53) % MCV 87.0 (80-100) fL MCH 29.4 (26-34) PG MCHC 33.8 (30-36) % RDW 14.0 (11.6-14.8) % Plt Count 203 (150-400) X10^3/uL Total Counted 100 Seg Neutrophils % 80.0 H (38-70) % Band Neutrophils % 2.0 L (3-7) % Lymphocytes % (Manual) 12.0 L (25-45) % Monocytes % (Manual) 4.0 (2-11) % Eosinophils % (Manual) 1.0 L (2-4) % Basophils % (Manual) 1.0 (0-1) % Neutrophils # (Manual) 86272 H (5306-5019) /uL RBC Morphology Normal morphology Sodium 143 (137-145) mmol/L Potassium 4.1 (3.4-5.1) mmol/L Chloride 106 (98-107) mmol/L Carbon Dioxide 28 (22-32) mmol/L BUN 17 (9-20) mg/dL Creatinine 1.00 (0.66-1.25) mg/dL Estimated GFR > 60.0 (>60) mL/min BUN/Creatinine Ratio 17.0 (6-22) Glucose 93 (70-100) mg/dL Calcium 9.9 (8.4-10.2) mg/dL Total Bilirubin 0.7 (0.2-1.3) mg/dL AST 25 (17-59) IU/L ALT 29 (21-72) IU/L Alkaline Phosphatase 39 (38-126) U/L Total Protein 7.5 (6.3-8.2) g/dL Albumin 4.5 (3.5-5.0) g/dL Globulin 3.0 (1.7-4.1) g/dL Albumin/Globulin Ratio 1.5 (1.0-2.8) Urine Dip Bedside Urine Glucose Negative Bedside Urine Bilirubin - Negative Bedside Urine Ketone +/- 5 Urine Specific [place] 1.030 Bedside Urine Occult Blood - Negative Bedside Urine pH 5.5 Bedside Urine Protein - Negative Bedside Urine Urobilinogen - Negative Bedside Urine Nitrite - Negative Bedside Urine Leukocytes - Negative Esterase Discharge Plan Departure Patient Disposition: Home Clinical Impression: Renal cyst Discharge Date/Time: 07/27/18 19:10 Interventions: ED Discharge Assessment Last Done: 07/27/18 19:26 Instructions: DI for Flank Pain Activity Restrictions/Additional Instructions: Your urine came back normal today. Your CBC and CMP came back normal today. Thus your kidney function is within normal limits. Please follow-up with primary care provider regarding the mass on in her kidney. This is found to be a solid cyst like structure with no blood flow. I have given you a prescription for naproxen for pain he could take this twice a day. Please start tomorrow given the Toradol that you had today. Please follow-up with the primary care provider. I have given you a contact information for legal stenographer so you can contact them if he would like. Prescriptions: New naproxen 500 mg tablet 500 mg PO BID Qty: 30 RF: 0 Referrals: [facility] [Outside] [facility] [Outside] <Albin Fiore DO - Last Filed: 07/27/18 23:48> [place] ED Attending Amairani Attestation: I was available for consultation during this patient's emergency department encounter
== END 2018-07-27 19:10 | disposition home or self-care (01) ==
PROVIDERS: Emergency Provider Nurse Practitioner Family
DX: N28.1 Cyst of kidney, acquired (principal)
CPT/HCPCS: 76770; 80053; 81003; 85025; 96372; 99282; 99284; J1885

== ENCOUNTER → 2018-12-01 16:03 | Outpatient (CLI) | payer OTHER, SELFPAY ==
--- NOTE | 2018-12-01 | DI.MRI.S_ITS ---
PROCEDURE: MR ABDOMEN WO/W CON INDICATIONS: LEFT RENAL MASS TECHNIQUE: Coronal HASTE through abdomen and pelvis; axial 2D FLASH in- and [id number] (with and without fat saturation), and breath-hold T2 FSE from the hepatic dome to the bottom of the kidneys. Coronal HASTE MR urogram of kidneys and bladder. Dynamic coronal VIBE during IV gadolinium administration; postgadolinium axial VIBE or 2D FLASH with fat saturation from the hepatic dome through the kidneys. COMPARISON: [facility], CT, CT ABDOMEN PELVIS W CON, 07/24/2018, 21:42. [facility], US, US RENAL COMPLETE, 07/27/2018, 18:09. FINDINGS: Image quality: Excellent. Genitourinary system: In the interpolar region of the left kidney, there is a round circumscribed lesion measuring approximately 1.4 x 1.6 x 1.3 cm. This demonstrates mild T1 hypointensity and mild internal T2 hyperintensity with a hypointense rim and internal septations. No definite signal dropout on out of phase imaging. Following contrast administration, there is mild internal enhancement. There is no evidence of perinephric extension or renal vein invasion. The kidneys demonstrate no hydronephrosis. No additional renal mass lesions identified. Other solid organs: The liver demonstrates no focal hepatic lesions. Gallbladder appears within normal limits without gallstones. Pancreas is normal morphology without peripancreatic edema. Pancreatic duct is nondistended. The spleen is normal in size. No adrenal nodules. Nodes and vessels: No mesenteric or retroperitoneal lymphadenopathy within the visualized abdomen by size criteria. The aorta is normal in caliber. Bowel and peritoneum: Visualized bowel loops are normal in caliber and wall thickness. No intraperitoneal free fluid. Lung bases: No basal pleural effusions. Heart is normal in size. Bones and soft tissues: Visualized osseous structures demonstrate no suspicious lesions. IMPRESSION: 1. Small left renal mass demonstrates internal enhancement and likely represents a renal cell carcinoma. No definitive internal fat components to suggest an angiomyolipoma. 2. No evidence of perinephric extension or renal vein invasion. No lymphadenopathy within the visualized abdomen. Dictated by: Reid Panchal M.D. on 12/02/2018 at 10:02 Approved by: Reid Panchal M.D. on 12/02/2018 at 10:58
== END ==
PROVIDERS: Family Provider Nurse Practitioner Acute Care; Visit Provider Nurse Practitioner Acute Care
DX: N28.89 Other specified disorders of kidney and ureter (principal)
CPT/HCPCS: 74183; A9579

== ENCOUNTER → 2019-03-27 07:30 | Outpatient (CLI) | payer OTHER, SELFPAY ==
--- NOTE | 2019-03-27 07:33 | DI.MRI.S_ITS ---
PROCEDURE: MR ABDOMEN WO/W CON INDICATIONS: RENAL MASS MONITORING TECHNIQUE: Coronal HASTE through abdomen and pelvis; axial 2D FLASH in- and [id number] (with and without fat saturation), and breath-hold T2 FSE from the hepatic dome to the bottom of the kidneys. Coronal HASTE MR urogram of kidneys and bladder. Dynamic coronal VIBE during IV gadolinium administration; postgadolinium axial VIBE or 2D FLASH with fat saturation from the hepatic dome through the kidneys. COMPARISON: [facility], US, US RENAL COMPLETE, 07/27/2018, 18:09. [facility], MR, MR ABDOMEN WO/W CON, 12/01/2018, 16:37. FINDINGS: Image quality: Excellent. Genitourinary system: At the left renal cortex, middle third of the kidney, there is a previously present mildly complex rounded structure that shows precontrast T1 radiodensity of 155 Hounsfield units, and postcontrast elevation of the internal radiodensity arising only to 166 Hounsfield units. Other solid organs: Normal Nodes and vessels: No abnormality seen. Bowel and peritoneum: Normal for age. Lung bases: Normal. Bones and soft tissues: Normal. IMPRESSION: The rounded structure measuring up to 1.6 cm is again seen to have mildly heterogeneous elevated T2 signal, slightly heterogeneous T1 signal, and on contrast-enhancement shows only 11 Hounsfield units rising radiodensity. This may represent a proteinaceous cyst. It is at the borderline threshold for definitively establishing contrast enhancement. This structure is easily visible by ultrasound, sharply defined, from ultrasound performed 07/27/18. Followup by ultrasound therefore is recommended at 6 month intervals for 2 years. Dictated by: Garett Yoder M.D. on 03/27/2019 at 11:32 Approved by: Garett Yoder M.D. on 03/27/2019 at 11:43
== END ==
PROVIDERS: Family Provider Nurse Practitioner Acute Care; Visit Provider Nurse Practitioner Acute Care
DX: N28.89 Other specified disorders of kidney and ureter (principal)
CPT/HCPCS: 74183

== ENCOUNTER → 2019-08-14 08:14 | Outpatient (CLI) | payer OTHER, SELFPAY ==
--- NOTE | 2019-08-14 | DI.MRI.S_ITS ---
PROCEDURE: MR ABDOMEN WO/W CON INDICATIONS: Neoplasm of uncertain behavior of left kidney TECHNIQUE: Coronal HASTE through abdomen and pelvis; axial 2D FLASH in- and [id number] (with and without fat saturation), and breath-hold T2 FSE from the hepatic dome to the bottom of the kidneys. Coronal HASTE MR urogram of kidneys and bladder. Dynamic coronal VIBE during IV gadolinium administration; postgadolinium axial VIBE or 2D FLASH with fat saturation from the hepatic dome through the kidneys. COMPARISON: [facility], US, US RENAL COMPLETE, 07/27/2018, 18:09. [facility], CT, CT ABDOMEN PELVIS WITHOUT CONTRAST, 11/12/2012, 8:13. [facility], CT, CT ABDOMEN PELVIS W CON, 07/24/2018, 21:42. [facility], MR, MR ABDOMEN WO/W CON, 12/01/2018, 16:37. [facility], MR, MR ABDOMEN WO/W CON, 03/27/2019, 8:07. FINDINGS: Image quality: Excellent. Genitourinary system: Within the interpolar region of the left kidney, there is a round mass lesion redemonstrated measuring approximately 1.7 x 1.6 x 1.7 cm, stable in size compared to the prior studies. This again demonstrates isointense to mildly hypointense signal on T1 and. Mild T2 hyperintensity with a low signal intensity rim suggestive of Asha ink artifact. There is also slight signal shift on out of phase imaging. The findings suggest a small component of internal fat. Following contrast administration, there is progressive increased internal signal intensity on post contrast sequences compatible with internal enhancement. No evidence of perinephric extension or renal vein invasion. The kidneys demonstrate no hydronephrosis. No additional renal masses identified. Other solid organs: The liver demonstrates no focal hepatic lesions. Gallbladder appears within normal limits without gallstones. No biliary duct dilatation. The pancreas demonstrates no discrete mass. The adrenal glands demonstrate no nodules. The spleen is normal in size. Nodes and vessels: No mesenteric or retroperitoneal lymphadenopathy by size criteria. The visualized aorta is normal in caliber. Bowel and peritoneum: Visualized bowel loops demonstrate normal wall thickness and caliber. No intraperitoneal free fluid. Lung bases: No basal pleural effusions. Heart is normal in size. Bones and soft tissues: No suspicious focal osseous lesions. IMPRESSION: 1. Left renal interpolar mass appears stable in size compared to the prior studies. There is apparent internal enhancement again noted. There is suggestion of a small internal component. The translation of findings are compatible with an enhancing solid mass. Given the suspected small internal fat component, the differential includes a fat containing lesion such an angiomyolipoma. However, a fat-containing renal cell carcinoma cannot be excluded and continued followup is noted to demonstrate stability. The Dictated by: Reid Panchal M.D. on 08/14/2019 at 13:56 Approved by: Reid Panchal M.D. on 08/14/2019 at 14:16
== END ==
PROVIDERS: Family Provider Nurse Practitioner Acute Care; Visit Provider Nurse Practitioner Acute Care
DX: D41.02 Neoplasm of uncertain behavior of left kidney (principal)
CPT/HCPCS: 74183; A9579

== ENCOUNTER → 2021-03-20 08:49 | Outpatient (CLI) | payer OTHER, SELFPAY ==
[2021-03-20] MEDS: COVID-19 VACC #2, MRNA(MOD) 100 MCG/0.5 ML VIAL IM (08:56)
== END ==
PROVIDERS: Family Provider Nurse Practitioner Acute Care; Visit Provider Internal Medicine
DX: Z23 Encounter for immunization (principal)
CPT/HCPCS: 0012A; 91301